=== PATIENT | female | born 1950 | race Caucasian/White ===

== ENCOUNTER 2018-02-27 15:05 | Outpatient (REF) | payer MEDICARE, OTHER, SELFPAY ==
[2018-02-27 21:33] LABS: ALT 40 U/L (12-78); AST 20 U/L (15-37); Alkaline Phosphatase 97 U/L (46-116); Anion Gap 12.6 mmol/L (3-11); BUN 29 mg/dL (7-18); CO2 26.4 mmol/L (21.0-32.0); CREATININE 1.14 mg/dL (0.55-1.02); Calcium 9.1 mg/dL (8.5-10.1); Chloride 103 mmol/L (98-107); Estimated GFR 47.84 (mL/min/1.73m2); Glucose 116 mg/dL (70-100); Sodium 142 mmol/L (136-145)
== END 2018-02-27 15:25 ==
LOC: NCHCN 15:05
PROVIDERS: PCP Internal Medicine; Visit Provider Internal Medicine
DX: I10 Essential (primary) hypertension (principal); M19.049 Primary osteoarthritis, unspecified hand
CPT/HCPCS: 80048; 84075; 84450; 84460

== ENCOUNTER 2018-03-09 00:48 | Outpatient (CLI) | payer MEDICARE, OTHER, SELFPAY ==
--- NOTE | 2018-03-09 14:00 | DI.RAD_ITS ---
SYMPTOMS/DIAGNOSIS: SCREENING FOR OSTEOPOROSIS IN POSTMENOPAUSAL WOMAN, Z78.0 DEXA SCAN: Routine examination was performed. Evaluation of the lumbar spine shows no compression deformities. Evaluation of the left hip shows a total T score of -1.5 and a Z score of -0.3. This is consistent with osteopenia and an increased fracture risk. Evaluation of the lumbar spine shows a total T score of -3.1 and a Z score of - 1.3. This is consistent with osteoporosis and a high fracture risk. IMPRESSION: Osteoporosis in the lumbar spine.
== END 2018-03-09 01:08 ==
PROVIDERS: PCP Internal Medicine; Visit Provider Internal Medicine
DX: M81.0 Age-related osteoporosis without current pathological fracture (principal)
CPT/HCPCS: 77080

== ENCOUNTER 2018-06-27 01:12 | Outpatient (CLI) | payer MEDICARE, OTHER, SELFPAY ==
--- NOTE | 2018-06-27 13:00 | DI.CT_ITS ---
SYMPTOMS/DIAGNOSIS: MULTIPLE NODULES OF LUNG, R91.8 CT SCAN OF THE CHEST: Noncontrast CT scan of the chest was performed. Comparison is 12/02/17. There is atherosclerosis of the thoracic aorta. Heart size is within normal limits. No significant pericardial effusion is seen. Coronary artery calcifications are present. There are calcified lymph nodes in the mediastinum and calcified nodules in the lungs consistent with prior granulomatous disease. The upper abdomen also shows calcification in the liver and spleen, consistent with prior granulomatous disease. No pleural effusion or pneumothorax is identified. There is again seen a 0.5 cm noncalcified pulmonary nodule in the left lung base medially. The nodule along the superior aspect of the right major fissure is unchanged. No new noncalcified pulmonary nodules are appreciated. Dependent atelectatic changes are seen in the lung bases. No focal consolidating infiltrates are present. There are degenerative changes seen in the spine. There is unchanged nodularity of the left adrenal gland. IMPRESSION: 1. Stable noncalcified pulmonary nodules. 2. Findings consistent with prior granulomatous disease in the chest and abdomen.
== END 2018-06-27 01:32 ==
PROVIDERS: PCP Internal Medicine; Visit Provider Internal Medicine
DX: R91.8 Other nonspecific abnormal finding of lung field (principal); J84.10 Pulmonary fibrosis, unspecified
CPT/HCPCS: 71250

== ENCOUNTER 2018-07-02 13:34 | Emergency (ER) | payer MEDICARE, OTHER, SELFPAY ==
[2018-07-02 13:47] VITALS: BP 180/100; PULSE 99; RESP 18; TEMP 36.6; O2SAT 96
--- NOTE | 2018-07-02 14:05 | ED.GENADUL_ITS ---
Discharge Plan Disposition Patient Disposition: HOME Condition: Improving Discharge Details Chief Complaint: DentalOral Clinical Impression: Odontalgia Primary Care Provider: Lorenzo Patel ED Provider: Aki Severino Home Meds and New Rx's Prescriptions: New penicillin V potassium 500 mg tablet 500 mg PO TID 10 Days Qty: 30 RF: 0 Continued hydrochlorothiazide 12.5 MG capsule 12.5 mg PO DAILY RF: 0 levothyroxine 50 MCG tablet 50 mcg PO DAILY RF: 0 estradiol [Estrace] 42.5 GM cream 42.5 gm VG twice weekly Qty: 1 RF: 3 losartan 50 MG tablet 50 mg PO DAILY RF: 0 trazodone 50 MG tablet 2 - 3 tab PO HS RF: 0 albuterol sulfate 8.5 GM HFA aerosol inhaler 2 puff Inhalation Q6H PRNRF: 0 duloxetine [Cymbalta] 30 MG capsule,delayed release(DR/EC) 30 mg PO DAILY RF: 0 Discharge Instructions Instructions: Toothache (ED) Additional Instructions: Warm, salt water gargles to reduce discomfort. May use Tylenol and/or ibuprofen as needed for pain. Take antibiotics as prescribed and follow-up with dentistry in the morning as planned. Return to the emergency department for any acute concerns Medical Decision Making 67-year-old female with poor dentition presents with right lower tooth pain over days time. She has numerous broken cusps of teeth and appears to have local apical infection at right lower premolar. She is hypertensive and in pain. Patient consented for dental block and right inferior alveolar anesthesia achieved with a 50-50 mix of Marcaine and lidocaine. Patient placed on a course of penicillin and she has pre-standing plans to follow-up with dentistry HPI General Mode of arrival: ambulatory . Date/Time Provider Initiated Documentation: 07/02/18 13:44 . Limitations to Documentation: no limitations . Information obtained by: patient . History of Present Illness 67 year old F presents to the emergency department with the chief complaint of Right lower jaw pain, broken teeth, described as moderate, Quality is described as aching, and is localized to the face and right. Patient reports no radiation. Patient started experiencing this day(s) and it has been constant. No relieving factors improve symptom(s), No exacerbating factors reported . Patient notes no other symptoms.. Related Data Home Medications Medication Instructions Recorded Confirmed albuterol sulfate 2 puff INHALATION Q6H PRN 03/12/13 10/03/17 duloxetine [Cymbalta] 30 mg PO DAILY 03/12/13 10/03/17 trazodone 2 - 3 tab PO HS 03/12/13 10/03/17 hydrochlorothiazide 12.5 mg PO DAILY tab-cap 06/04/14 10/03/17 levothyroxine 50 mcg PO DAILY tab-cap 02/19/16 10/03/17 estradiol [Estrace] 42.5 gm VG twice weekly #1 tube 08/29/17 losartan 50 mg PO DAILY tab-cap NS 09/21/17 10/03/17 penicillin V potassium 500 mg PO TID 10 Days #30 tab 07/02/18 Previous Rx's Medication Instructions Recorded estradiol [Estrace] 42.5 gm VG twice weekly #1 tube 08/29/17 penicillin V potassium 500 mg PO TID 10 Days #30 tab 07/02/18 Allergies Allergy/AdvReac Type Severity Reaction Status Date / Time No Known Drug Allergies Allergy Unverified 07/02/18 13:54 General Stated Complaint: DentalOral JAIRON: 4 Review of Systems Review of Systems 6 systems reviewed and otherwise neg PFSH Surgical History Colonoscopy - IV Sedation Colonoscopy - MAC (10/03/17) Family History Mother Heart disease Stroke Father Lung cancer Social History Smoking/Tobacco Use Status: Never Exam Narrative Exam Narrative: GEN: awake, alert, oriented 3. Pleasant, well groomed, interactive. HEAD: Normocephalic, atraumatic ENT: Mucous membranes moist, oropharynx with numerous broken cusps of teeth. Right lower premolar with pain and mild surrounding induration, no fluctuance. EYES: PERRL, EOMI NECK: Full ROM, no QUINCY, no menigismus CHEST/RESP: Nontender, clear to auscultation bilateral, no wheeze/rhonchi/rales CARDIOVASCULAR: RRR, no murmur, rub yvan. 2+ Rad pulse bilateral ABDOMEN: Soft, nontender, no mass. +Bowel sounds EXT: Full ROM, no edema, no rash Neuro: Grossly normal neurologic exam, conversant, interactive. Psych: Speech fluent, thoughts congruent, affect normal Course Vital Signs Temperature 36.6 C 07/02/18 13:47 Pulse 99 H 07/02/18 13:47 Respiratory Rate 18 07/02/18 13:47 Blood Pressure 180/100 H 07/02/18 13:47 Pulse Oximetry 96 07/02/18 13:47 Temperature 36.6 C 07/02/18 13:47 Temperature Source Temporal Artery Scan 07/02/18 13:47 Pulse 99 H 07/02/18 13:47 Respiratory Rate 18 07/02/18 13:47 Respiratory Effort Non-Labored 07/02/18 13:53 Blood Pressure 180/100 H 07/02/18 13:47 Blood Pressure Position Sitting 07/02/18 13:47 Pulse Oximetry 96 07/02/18 13:47 Oxygen Delivery Method Room Air 07/02/18 13:47 Oxygen Flow Rate 0 07/02/18 13:47 Pain Level 9 07/02/18 13:58 Procedures Nerve Block Nerve Block 1: Time out performed: Yes Local Anesthetic: Lidocaine 1% and Bupivicaine 0.25% Intraoral Nerve Block: inferior alveolar Patient Tolerated Procedure: well
[2018-07-02] MEDS: Penicillin V POTASSIUM 500 MG TAB PO (14:20)
== END 2018-07-02 14:13 | disposition home or self-care (01) ==
PROVIDERS: Emergency Provider Emergency Medicine; PCP Internal Medicine
DX: K08.89 Other specified disorders of teeth and supporting structures (principal)
CPT/HCPCS: 64402

== ENCOUNTER 2018-07-25 11:07 | Outpatient (CLI) | payer MEDICARE, OTHER, SELFPAY ==
--- NOTE | 2018-07-25 11:35 | DI.RAD_ITS ---
SYMPTOM/DIAGNOSIS: DEGENERATIVE JOINT DISEASE KNEES, RT HIP PAIN, M25.551, M17.9 PELVIS AND RIGHT HIP: Two views. The right hip is well maintained. The sacroiliac joints and symphysis pubis are unremarkable. The bones are intact and normally mineralized. Note is made of mild degenerative changes seen in the lower lumbar spine. The soft tissues are unremarkable. IMPRESSION: Normal right hip. Mild degenerative changes seen in the lower lumbar spine. If there is continued concern, an xray of the lumbar spine may be considered. RIGHT KNEE: Frontal and lateral views. No priors for comparison. There is mild narrowing in the medial femoral tibial joint space. There is kar-articular spurring involving all three joint compartments, particularly the patellofemoral joint. The bones are intact and normally mineralized. The soft tissues are unremarkable. IMPRESSION: Mild to moderate degenerative changes of the right knee.
== END 2018-07-25 11:27 ==
PROVIDERS: PCP Internal Medicine; Visit Provider Internal Medicine
DX: M25.551 Pain in right hip (principal); M17.11 Unilateral primary osteoarthritis, right knee; M25.561 Pain in right knee; M25.562 Pain in left knee
CPT/HCPCS: 73562; 73502

== ENCOUNTER 2018-10-18 09:25 | Outpatient (CLI) | payer MEDICARE, OTHER, SELFPAY ==
--- NOTE | 2018-10-18 09:24 | DI.RAD_ITS ---
SYMPTOM/DIAGNOSIS: RT KNEE PAIN RIGHT KNEE: Two views were obtained. There is moderate narrowing of the medial tibiofemoral cartilaginous joint space. There are marginal osteophytes at the medial joint margins. No other specific bony abnormality is seen. CONCLUSION: DJD of medial tibiofemoral joint.
== END 2018-10-18 09:45 ==
PROVIDERS: PCP Internal Medicine; Referring Provider Internal Medicine; Visit Provider Student in an Organized Health Care Education/Training Program
DX: M25.561 Pain in right knee (principal); M17.11 Unilateral primary osteoarthritis, right knee; M25.551 Pain in right hip; M70.61 Trochanteric bursitis, right hip
CPT/HCPCS: 20610; 99202; 99214; 73560; J1040

== ENCOUNTER → 2018-12-18 12:56 | Outpatient (BNVA) | payer MEDICARE, OTHER, SELFPAY | PROVIDERS: PCP Internal Medicine; Referring Provider Internal Medicine; Visit Provider Student in an Organized Health Care Education/Training Program | DX: M25.561 Pain in right knee (principal); M70.61 Trochanteric bursitis, right hip; Z98.890 Other specified postprocedural states; M17.11 Unilateral primary osteoarthritis, right knee | CPT/HCPCS: 99213 ==

== ENCOUNTER 2019-02-07 12:28 | Outpatient (REF) | payer MEDICARE, OTHER, SELFPAY ==
[2019-02-08 05:19] LABS: HCT 42.1 % (36.0-46.0); HGB 13.2 g/dL (12.0-15.5); Mean Corp. HGB Concentration 31.4 g/dL (32.0-36.0); Mean Corpuscular Volume 95.7 fL (80-95); Platelet Count 232 x1000/uL (130-400); RBC Distribution Width 12.8 % (11.7-14.6); White Blood Cell Count 6.39 k/cumm (4.4-10.8)
[2019-02-08 05:52] LABS: Anion Gap 11.8 mmol/L (3-11); BUN 23 mg/dL (7-18); CO2 24.2 mmol/L (21.0-32.0); CREATININE 1.08 mg/dL (0.55-1.02); Calcium 8.7 mg/dL (8.5-10.1); Chloride 107 mmol/L (98-107); Estimated GFR 50.76 (mL/min/1.73m2); FREE T4 1.13 ng/dL (0.76-1.46); Glucose 128 mg/dL (70-100); Potassium 3.8 mmol/L (3.5-5.1); Sodium 143 mmol/L (136-145); TSH 1.21 uIU/mL (0.36-3.74)
== END 2019-02-07 12:48 ==
LOC: NCHCN 12:28
PROVIDERS: PCP Internal Medicine; Visit Provider Internal Medicine
DX: E03.9 Hypothyroidism, unspecified (principal); I10 Essential (primary) hypertension; R53.83 Other fatigue
CPT/HCPCS: 80048; 85027; 84439; 84443

== ENCOUNTER 2019-05-18 21:13 | Outpatient (REF) | payer MEDICARE, OTHER, SELFPAY | END 2019-05-18 21:33 | LOC: NCHCN 21:13 | PROVIDERS: PCP Internal Medicine; Visit Provider Family Medicine | DX: R35.0 Frequency of micturition (principal) | CPT/HCPCS: 87086 ==

== ENCOUNTER 2020-01-24 00:44 | Outpatient (CLI) | payer MEDICARE, OTHER, SELFPAY ==
--- NOTE | 2020-01-24 12:25 | DI.MAMMO_ITS ---
EXAM: MAMMO SCREENING CLINICAL HISTORY: SCREENING, Z12.39 TECHNIQUE: Mammograms were interpreted according to the usual protocol including computer analysis w [employer] CAD system, tomosynthesis and C-view imaging. COMPARISON: 2010 through 2017 FINDINGS: The breasts are composed of scattered fibroglandular densities, Breast Density category B. No suspicious masses or suspicious microcalcifications are seen. No skin thickening or abnormal axillary lymph nodes are seen. There has been no significant change from prior exams. IMPRESSION: BI-RADS Category 1, Negative mammogram Yearly screening mammography is recommended. Breast Density Category B, scattered fibroglandular densities. A negative radiographic report should not delay biopsy if a dominant or clinically suspicious mass is present. Up to ten percent of cancers are not identified on mammography. A negative report may reinforce clinical impression. Adenosis and dense breasts may obscure an underlying neoplasm. False positive reports average 6 to 10%. Patient will receive a letter notifying them of these results.
== END 2020-01-24 01:04 ==
PROVIDERS: PCP Internal Medicine; Visit Provider Internal Medicine
DX: Z12.31 Encounter for screening mammogram for malignant neoplasm of breast (principal); R92.2 Inconclusive mammogram
CPT/HCPCS: 77063; 77067

== ENCOUNTER 2020-02-07 12:06 | Outpatient (REF) | payer MEDICARE, OTHER, SELFPAY ==
[2020-02-07 20:50] LABS: HCT 41.1 % (36.0-46.0); HGB 13.6 g/dL (11.2-15.7); MCH 30.9 pg (27.0-33.0); MCHC 33.1 % (32.0-36.0); MCV 93.4 fL (80-95); MPV 13.2 fL (8.0-11.0); Platelet Count 263 10^3/uL (130-400); RDW-SD 41.3 fL; WBC 5.22 10^3/uL (4.4-10.8)
[2020-02-07 21:10] LABS: ALT 27 U/L (14-59); AST 13 U/L (15-37); Alkaline Phosphatase 121 U/L (46-116); Anion Gap 9.3 mmol/L (3-11); BUN 19 mg/dL (7-18); Bilirubin, Total 0.3 mg/dL (0.2-1.0); CO2 25.7 mmol/L (21.0-32.0); CREATININE 0.97 mg/dL (0.55-1.02); Calcium 9.3 mg/dL (8.5-10.1); Chloride 104 mmol/L (98-107); Estimated GFR 57.28 (mL/min/1.73m2); FREE T4 1.05 ng/dL (0.76-1.46); Glucose 82 mg/dL (74-106); Potassium 4.2 mmol/L (3.5-5.1); Sodium 139 mmol/L (136-145); TSH 2.11 uIU/mL (0.36-3.74); Total Protein 7.1 g/dL (6.4-8.2)
[2020-02-07 21:51] LABS: Vitamin B12 398 pg/mL (193-986)
== END 2020-02-07 12:26 ==
LOC: NCHCN 12:06
PROVIDERS: PCP Internal Medicine; Visit Provider Internal Medicine
DX: R53.83 Other fatigue (principal); E03.9 Hypothyroidism, unspecified; I10 Essential (primary) hypertension; M79.7 Fibromyalgia
CPT/HCPCS: 80053; 85027; 82607; 84439; 84443

== ENCOUNTER 2020-08-07 21:14 | Outpatient (REF) | payer MEDICARE, OTHER, SELFPAY | END 2020-08-07 21:15 | disposition home or self-care (01) | LOC: NCHCN 21:14 | PROVIDERS: PCP Internal Medicine; Visit Provider Internal Medicine | DX: R35.0 Frequency of micturition (principal); R32 Unspecified urinary incontinence | CPT/HCPCS: 87086 ==

== ENCOUNTER 2020-09-25 19:15 | Outpatient (REF) | payer MEDICARE, OTHER, SELFPAY | END 2020-09-25 19:16 | disposition home or self-care (01) | LOC: NCHCN 19:15 | PROVIDERS: PCP Internal Medicine; Visit Provider Family Medicine | DX: R35.0 Frequency of micturition (principal) | CPT/HCPCS: 87086 ==

== ENCOUNTER 2021-02-23 15:47 | Outpatient (REF) | payer MEDICARE, OTHER, SELFPAY ==
[2021-02-23 20:57] LABS: HCT 40.2 % (36.0-46.0); HGB 12.9 g/dL (11.2-15.7); MCH 30.5 pg (27.0-33.0); MCHC 32.1 % (32.0-36.0); MPV 13.4 fL (8.0-11.0); Platelet Count 222 10^3/uL (130-400); RBC 4.23 10^6/uL (3.93-5.22); RDW 12.5 % (11.7-14.6); RDW-SD 43.2 fL; WBC 7.26 10^3/uL (4.4-10.8)
[2021-02-23 21:19] LABS: ALT 31 U/L (14-59); AST 14 U/L (15-37); Albumin 3.8 g/dL (3.4-5.0); Alkaline Phosphatase 112 U/L (46-116); Anion Gap 7.8 mmol/L (3-11); BUN 22 mg/dL (7-18); Bilirubin, Total 0.2 mg/dL (0.2-1.0); CO2 29.2 mmol/L (21.0-32.0); CREATININE 0.9 mg/dL (0.55-1.02); Calcium 8.8 mg/dL (8.5-10.1); Chloride 109 mmol/L (98-107); Glucose 87 mg/dL (74-106); Potassium 4.5 mmol/L (3.5-5.1); Sodium 146 mmol/L (136-145); Total Protein 6.8 g/dL (6.4-8.2)
== END 2021-02-23 15:48 | disposition home or self-care (01) ==
LOC: NCHCN 15:47
PROVIDERS: PCP Internal Medicine; Visit Provider Internal Medicine
DX: I10 Essential (primary) hypertension (principal); R53.83 Other fatigue
CPT/HCPCS: 80053; 85027

== ENCOUNTER 2021-03-20 10:49 | Outpatient (REF) | payer MEDICARE, SELFPAY ==
[2021-03-21 15:32] LABS: COVID-19 RT-PCR UVMMC Result Negative (Negative)
== END 2021-03-20 10:50 | disposition home or self-care (01) ==
LOC: NCHCN 10:49
PROVIDERS: PCP Internal Medicine; Visit Provider Internal Medicine
DX: Z20.822 Contact with and (suspected) exposure to COVID-19 (principal)
CPT/HCPCS: U0003; U0005

== ENCOUNTER → 2021-04-09 11:08 | Outpatient (BNVA) | payer MEDICARE, OTHER, SELFPAY | PROVIDERS: PCP Internal Medicine; Referring Provider Internal Medicine; Visit Provider Physical Therapy Assistant | DX: R19.4 Change in bowel habit (principal); I10 Essential (primary) hypertension; Z86.010 Personal history of colon polyps | CPT/HCPCS: 99213 ==

== ENCOUNTER 2021-04-27 01:28 | Outpatient (CLI) | payer MEDICARE, SELFPAY ==
--- NOTE | 2021-04-27 09:00 | DI.MAMMO_ITS ---
Exam(s) MAMMO SCREENING EXAM: MAMMO SCREENING CLINICAL HISTORY: SCREENING FOR BREAST CANCER Z12.39 TECHNIQUE: Mammograms were interpreted according to the usual protocol including computer analysis w [employer] CAD system, tomosynthesis and C-view imaging. COMPARISON: 2012 through 2019 FINDINGS: The breasts are composed of scattered fibroglandular densities, Breast Density category B. No suspicious masses or suspicious microcalcifications are seen. No skin thickening or abnormal axillary lymph nodes are seen. There has been no significant change from prior exams. IMPRESSION: BI-RADS Category 1, Negative mammogram Yearly screening mammography is recommended. Breast Density - Category B, scattered fibroglandular densities. A negative radiographic report should not delay biopsy if a dominant or clinically suspicious mass is present. Up to ten percent of cancers are not identified on mammography. A negative report may reinforce clinical impression. Adenosis and dense breasts may obscure an underlying neoplasm. False positive reports average 6 to 10%. Patient will receive a letter notifying them of these results.
== END 2021-04-27 01:48 ==
PROVIDERS: PCP Internal Medicine; Visit Provider Internal Medicine
DX: Z12.31 Encounter for screening mammogram for malignant neoplasm of breast (principal)
CPT/HCPCS: 77063; 77067

== ENCOUNTER 2021-06-01 11:43 | Outpatient (REF) | payer MEDICARE, SELFPAY ==
[2021-06-01 15:41] LABS: FREE T4 1.01 ng/dL (0.76-1.46); TSH 1.21 uIU/mL (0.36-3.74)
== END 2021-06-01 11:44 | disposition home or self-care (01) ==
LOC: NCHCN 11:43
PROVIDERS: PCP Internal Medicine; Visit Provider Internal Medicine
DX: E03.9 Hypothyroidism, unspecified (principal)
CPT/HCPCS: 84439; 84443

== ENCOUNTER 2022-04-08 02:18 | Outpatient (CLI) | payer MEDICARE, SELFPAY ==
--- NOTE | 2022-04-08 | DI.RAD_ITS ---
Exam(s) XR KNEE LT 3V AP,LAT,RUSSELL EXAM: XR KNEE LT 3V AP,LAT,RUSSELL CLINICAL HISTORY: LT KNEE PAIN, M25.562, PAIN, SWELLING TECHNIQUE: COMPARISON: CR XR knee RT 2V AP,lat from 10/18/2018 FINDINGS: Three views were obtained. There is moderate narrowing of the medial tibiofemoral cartilaginous join t space, presumably on a degenerative basis. Mild marginal osteophyte formation seen involving all 3 joints of the knee. No other bony abnormality seen. IMPRESSION: RADIATION DOSE DELIVERED: Total DLP
== END 2022-04-08 02:38 ==
LOC: DI 02:18
PROVIDERS: PCP Internal Medicine; Visit Provider Internal Medicine
DX: M17.12 Unilateral primary osteoarthritis, left knee (principal)
CPT/HCPCS: 73562

== ENCOUNTER 2022-04-22 13:41 | Outpatient (REF) | payer MEDICARE, OTHER, SELFPAY ==
[2022-04-22 15:03] LABS: Anion Gap 7.9 mmol/L (3-11); BUN 18 mg/dL (7-18); CO2 26.1 mmol/L (21.0-32.0); CREATININE 0.9 mg/dL (0.55-1.02); Calcium 8.7 mg/dL (8.5-10.1); Calculated LDL 169 mg/dL (<100); Chloride 106 mmol/L (98-107); Cholesterol 243 mg/dL (<200); Glucose 105 mg/dL (74-106); HDL Cholesterol 53 mg/dL (40-60); Potassium 4.1 mmol/L (3.5-5.1); Sodium 140 mmol/L (136-145); TSH 1.42 uIU/mL (0.36-3.74); Triglyceride 107 mg/dL (<150)
== END 2022-04-22 13:42 | disposition home or self-care (01) ==
LOC: NCHCN 13:41
PROVIDERS: PCP Internal Medicine; Visit Provider Internal Medicine
DX: I10 Essential (primary) hypertension (principal); E03.9 Hypothyroidism, unspecified; F43.23 Adjustment disorder with mixed anxiety and depressed mood
CPT/HCPCS: 80048; 80061; 84443

== ENCOUNTER → 2022-05-03 10:39 | Outpatient (BNVA) | payer MEDICARE, OTHER, SELFPAY | PROVIDERS: PCP Internal Medicine; Referring Provider Internal Medicine | DX: M17.12 Unilateral primary osteoarthritis, left knee (principal) | CPT/HCPCS: 20610; 99213; J1040 ==

== ENCOUNTER → 2022-08-20 08:36 | Outpatient (BNVA) | payer MEDICARE, OTHER, SELFPAY | PROVIDERS: PCP Internal Medicine; Referring Provider Internal Medicine; Visit Provider Student in an Organized Health Care Education/Training Program | DX: M17.12 Unilateral primary osteoarthritis, left knee (principal); M70.62 Trochanteric bursitis, left hip | CPT/HCPCS: 20610; J1040 ==

== ENCOUNTER 2022-10-29 17:27 | Emergency (ER) | payer MEDICARE, OTHER, SELFPAY ==
[2022-10-29 17:41] VITALS: BP 193/86; PULSE 79; RESP 17; TEMP 36.9; O2SAT 96
--- NOTE | 2022-10-29 19:45 | DI.RAD_ITS ---
Exam(s) XR FINGER LT MIDDLE EXAM: XR FINGER LT MIDDLE CLINICAL HISTORY: trauma. TECHNIQUE: 2D digital imaging was performed. COMPARISON: No exams were available for comparison FINDINGS: 3 views Dedicated views of the 3rd-middle finger reveal significant osteoarthritic degenerative changes in th e PIP joint. Subtle lucency in the dorsal osteophyte at this level may represent fracture. No radio paque foreign body. There are no erosions at the MCP joint levels. IMPRESSION: DATA REPOSITORY: RADIATION DOSE DELIVERED:
--- NOTE | 2022-10-29 19:45 | DI.RAD_ITS ---
Exam(s) XR WRIST LT COMPLETE EXAM: XR WRIST LT COMPLETE CLINICAL HISTORY: trauma. TECHNIQUE: 2D digital imaging was performed. COMPARISON: No exams were available for comparison FINDINGS: 3 views No evidence of fracture or carpal dislocation. No significant ulnar variance. Scaphoid and scapholu pelon distance unremarkable. Degenerative changes in the 1st carpometacarpal joint noted. IMPRESSION: No fractures evident. DATA REPOSITORY: RADIATION DOSE DELIVERED:
--- NOTE | 2022-10-29 19:45 | DI.RAD_ITS ---
Exam(s) XR HAND LT COMPLETE EXAM: XR HAND LT COMPLETE CLINICAL HISTORY: trauma. TECHNIQUE: 2D digital imaging was performed. COMPARISON: CR ARTHITIS SERIES-CEDRICK HAND WRIST from 09/18/2008 FINDINGS: 3 views No metacarpal fractures. There are significant degenerative changes in the PIP joints. On the later al view there is a finding in dorsal osteophyte the PIP joint of the 3rd-middle finger which may be a fracture. There is some overlying soft tissue swelling. Correlation with site of tenderness is rec ommended. IMPRESSION: DATA REPOSITORY: RADIATION DOSE DELIVERED:
--- NOTE | 2022-10-29 20:29 | DI.VRAD_ITS ---
PROCEDURE INFORMATION: Exam: XR Left Wrist Exam date and time: 10/29/2022 8:12 PM Age: 71 years old Clinical indication: Injury or trauma; Fall; Blunt trauma (contusions or hematomas); Wrist; Left TECHNIQUE: Imaging protocol: Radiologic exam of the left wrist. Views: 3 or more views. COMPARISON: CR XR HAND LT COMPLETE 10/29/2022 8:11 PM FINDINGS: Bones/joints: Bones appear osteopenic. Osseous alignment is normal. No acute fracture. Moderate degenerative changes noted in the trapezial metacarpal joint. Soft tissues: Normal. IMPRESSION: No acute abnormality Dictated and Authenticated by: Guilherme Andrade MD. Ordering:DALE Rodney MD
--- NOTE | 2022-10-29 20:32 | DI.VRAD_ITS ---
PROCEDURE INFORMATION: Exam: XR Left Hand Exam date and time: 10/29/2022 8:11 PM Age: 71 years old Clinical indication: Injury or trauma; Fall; Crushing; Hand; Left TECHNIQUE: Imaging protocol: Radiologic exam of the left hand. Views: 3 or more views. COMPARISON: No relevant prior studies available. FINDINGS: Bones/joints: Bones appear osteopenic. On the lateral view, there is lucency through a dorsal osteophyte at the 3rd PIP joint. No other findings suspicious for fracture. Significant changes of erosive osteoarthritis noted at the proximal interphalangeal joints of the 3rd, 4th and 5th fingers. More mild degenerative changes noted in the distal interphalangeal joints of the 2nd, 3rd and 4th fingers. Moderate degenerative changes noted at the trapezial metacarpal joint Soft tissues: Moderate soft tissue swelling of the 3rd finger IMPRESSION: Questionable fracture of a dorsal osteophyte at the 3rd PIP joint. Otherwise arthritic changes as noted. Dictated and Authenticated by: Guilherme Andrade MD. Ordering:DALE Rodney MD
--- NOTE | 2022-10-29 20:34 | DI.VRAD_ITS ---
PROCEDURE INFORMATION: Exam: XR Left Finger(s) Exam date and time: 10/29/2022 8:13 PM Age: 71 years old Clinical indication: Injury or trauma; Fall; Blunt trauma (contusions or hematomas); Left; Middle finger TECHNIQUE: Imaging protocol: Radiologic exam of the left fingers. Views: Minimum 2 views. COMPARISON: CR XR WRIST LT COMPLETE 10/29/2022 8:12 PM FINDINGS: Bones/joints: Lucency of dorsal osteophyte arising from the middle phalanx along the dorsal aspect of the 3rd PIP joint noted. This raises concern for fracture. No other findings suspicious for fracture. Slight malalignment of the 3rd PIP joint may be posttraumatic or due to severe arthritic changes. Significant changes of osteoarthritis noted throughout the visualized interphalangeal joints Soft tissues: There is diffuse soft tissue swelling of the 3rd finger. IMPRESSION: Questionable fracture of the dorsal osteophyte of the 3rd PIP joint. Slight malalignment of the 3rd PIP joint may be due to underlying erosive arthritic changes. Dictated and Authenticated by: Guilherme Andrade MD. Ordering:DALE Rodney MD
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
--- NOTE | 2022-10-30 10:41 | NUR.NOTE ---
Nursing Note: Accessed chart for [facility] billing purposes.
== END 2022-10-29 21:17 | disposition home or self-care (01) ==
PROVIDERS: Emergency Provider Nurse Practitioner Acute Care; PCP Internal Medicine
DX: S63.92XA Sprain of unspecified part of left wrist and hand, initial encounter (principal); S62.603A Fracture of unspecified phalanx of left middle finger, initial encounter for closed fracture; W19.XXXA Unspecified fall, initial encounter
CPT/HCPCS: 99284; 73110; 73130; 73140; 99283

== ENCOUNTER → 2022-11-04 10:05 | Outpatient (BNVA) | payer MEDICARE, OTHER, SELFPAY | PROVIDERS: PCP Internal Medicine; Referring Provider Internal Medicine; Visit Provider Physical Therapy Assistant | DX: Z12.11 Encounter for screening for malignant neoplasm of colon (principal); Z86.010 Personal history of colon polyps ==

== ENCOUNTER 2022-11-18 01:14 | Outpatient (CLI) | payer MEDICARE, OTHER, SELFPAY | END 2022-11-18 01:15 | disposition home or self-care (01) | LOC: LBO 01:15 | PROVIDERS: PCP Internal Medicine; Visit Provider Student in an Organized Health Care Education/Training Program | DX: S52.502A Unspecified fracture of the lower end of left radius, initial encounter for closed fracture (principal); S62.603A Fracture of unspecified phalanx of left middle finger, initial encounter for closed fracture; X58.XXXA Exposure to other specified factors, initial encounter | CPT/HCPCS: 99215 ==

== ENCOUNTER 2022-11-18 14:08 | Outpatient (CLI) | payer MEDICARE, OTHER, SELFPAY ==
--- NOTE | 2022-11-18 13:15 | DI.RAD_ITS ---
Exam(s) XR WRIST LT COMPLETE EXAM: XR WRIST LT COMPLETE CLINICAL HISTORY: left wrist sprain. TECHNIQUE: 2D digital imaging was performed. COMPARISON: CR,XR XR WRIST LT COMPLETE from 10/29/2022 FINDINGS: 3 views There is now a new impacted transverse fracture of the distal radius approximately 1 cm proximal to t he radiocarpal joint surface. There is no fracture of the ulnar styloid and no significant ulnar variance. No carpal dislocation. Scaphoid appears unremarkable. Degenerative changes are incidentally noted in the 1st carpometacarp al joint. IMPRESSION: Impacted fracture of the distal radius. No significant dorsal angulation. Ulnar styloid is intact. DATA REPOSITORY: RADIATION DOSE DELIVERED:
--- NOTE | 2022-11-18 13:15 | DI.RAD_ITS ---
Exam(s) XR HAND LT COMPLETE EXAM: XR HAND LT COMPLETE CLINICAL HISTORY: left middle finger fx. TECHNIQUE: 2D digital imaging was performed. COMPARISON: CR,XR XR FINGER LT MIDDLE from 10/29/2022 FINDINGS: 3 views There is now an impacted transverse fracture of the distal radius. Ulnar styloid appears intact. No dorsal angulation. Scaphoid and scapholunate distance normal. There are degenerative changes in th e 1st carpometacarpal joint again noted. No fractures of the metacarpals and phalanges but significa nt arthritic changes in the proximal interphalangeal joints of the 3rd, 4th, and 5th fingers are note d. There is relative sparing of the proximal interphalangeal joint of the 2nd-index finger. The int erphalangeal joint of the thumb is involved. Metacarpophalangeal joints appear unremarkable in all f ingers including the thumb. Mild degenerative changes in the DIP joints are noted with more prominen t DIP joint involvement evident in the index-2nd finger. IMPRESSION: Impacted distal radius transverse fracture. Articular findings in the hand but no acute osseous fractures in the hand evident. DATA REPOSITORY: RADIATION DOSE DELIVERED:
== END 2022-11-18 14:09 | disposition home or self-care (01) ==
LOC: DIORS 14:09
PROVIDERS: PCP Internal Medicine; Referring Provider Internal Medicine; Visit Provider Physician Assistant
DX: S63.502A Unspecified sprain of left wrist, initial encounter (principal); S62.603A Fracture of unspecified phalanx of left middle finger, initial encounter for closed fracture; X58.XXXA Exposure to other specified factors, initial encounter
CPT/HCPCS: 99215; 73110; 73130

== ENCOUNTER 2022-12-08 22:03 | Outpatient (REF) | payer MEDICARE, OTHER, SELFPAY | END 2022-12-08 22:04 | disposition home or self-care (01) | LOC: NCHCN 22:03 | PROVIDERS: PCP Internal Medicine; Visit Provider Family Medicine | DX: R35.0 Frequency of micturition (principal) | CPT/HCPCS: 87086 ==

== ENCOUNTER 2022-12-09 15:04 | Outpatient (CLI) | payer MEDICARE, OTHER, SELFPAY ==
--- NOTE | 2022-12-09 13:00 | DI.RAD_ITS ---
Exam(s) XR WRIST LT COMPLETE EXAM: XR WRIST LT COMPLETE CLINICAL HISTORY: F/U FRACTURE. TECHNIQUE: 2D digital imaging was performed. Three views. COMPARISON: CR XR WRIST LT COMPLETE from 11/18/2022 FINDINGS: There has been no change in the alignment of the distal radial fracture which shows mild displacement and impaction. There is a somewhat rounded density seen at the ventral aspect of the distal radius adjacent to the fracture site which could represent callus formation. Severe degenerative changes ag ain noted at the 1st carpal metacarpal joint. IMPRESSION: Healing distal radial fracture. DATA REPOSITORY: RADIATION DOSE DELIVERED:
== END 2022-12-09 15:05 | disposition home or self-care (01) ==
LOC: DIORS 15:04
PROVIDERS: PCP Internal Medicine; Referring Provider Internal Medicine; Visit Provider Physician Assistant
DX: S52.502D Unspecified fracture of the lower end of left radius, subsequent encounter for closed fracture with routine healing; X58.XXXD Exposure to other specified factors, subsequent encounter
CPT/HCPCS: 99213; 73110

== ENCOUNTER 2023-01-20 11:57 | Outpatient (CLI) | payer MEDICARE, OTHER, SELFPAY ==
--- NOTE | 2023-01-20 11:00 | DI.RAD_ITS ---
Exam(s) XR WRIST LT COMPLETE EXAM: XR WRIST LT COMPLETE CLINICAL HISTORY: F/U LEFT DISTAL RADIUS FX. TECHNIQUE: 2D digital imaging was performed. COMPARISON: CR XR WRIST LT COMPLETE from 12/09/2022 FINDINGS: 3 views Healing impacted fracture distal radius again noted. Appearance is similar to 12/09/2022. No furthe r displacement. Mild positive ulnar variance again noted. IMPRESSION: Healing distal radius fracture. Appearance is similar to 12/09/2022. DATA REPOSITORY: RADIATION DOSE DELIVERED:
== END 2023-01-20 11:58 | disposition home or self-care (01) ==
LOC: DIORS 11:57
PROVIDERS: PCP Internal Medicine; Referring Provider Internal Medicine; Visit Provider Student in an Organized Health Care Education/Training Program
DX: S52.502D Unspecified fracture of the lower end of left radius, subsequent encounter for closed fracture with routine healing (principal); X58.XXXD Exposure to other specified factors, subsequent encounter
CPT/HCPCS: 99213; 73110

== ENCOUNTER → 2023-01-25 12:52 | Outpatient (BNVA) | payer MEDICARE, OTHER, SELFPAY | PROVIDERS: PCP Internal Medicine; Referring Provider Internal Medicine; Visit Provider Surgery | DX: Z12.11 Encounter for screening for malignant neoplasm of colon (principal); Z86.010 Personal history of colon polyps ==

== ENCOUNTER 2023-02-08 08:29 | Day surgery (SDC) | payer MEDICARE, OTHER, SELFPAY ==
[2023-02-08 08:38] VITALS: BP 168/77; PULSE 76; RESP 18; TEMP 36.6; O2SAT 95
[2023-02-08] MEDS: Lactated Ringers 1,000 ML 80 ML IV (09:15)
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
[2023-02-08 10:35] VITALS: BMI 32.1
--- NOTE | 2023-02-08 10:43 | W.COLOREPORT ---
Date of service: 02/08/23 Time of Service: 11:17 Colonoscopy Report Procedure Description: Procedures performed: 1. Colonoscopy with snare polypectomy x2 2. Cold forceps polypectomy x1 Preoperative diagnosis: Surveillance colonoscopy Postoperative diagnosis: Colon polyps, mild sigmoid diverticulosis, mild grade 1 internal hemorrhoids Surgeon: Albert Vargas Anesthesia: Paul Indication for procedure: Patient is a 72-year-old woman with a history of polyps, no family history of colon cancer, she does admit to new constipation on and off over the last few months. Findings: In the cecum a small 2-3 mm sessile polyp was removed with cold forceps technique. In the ascending colon a small 3-5 mm flat sessile polyp was removed with hot snare technique. In the sigmoid colon a pedunculated 10-12 mm polyp was removed with hot snare technique. There are minimal diverticular changes in the sigmoid colon only. There are minimal grade 1 internal hemorrhoids. Surveillance/follow-up recommendations: 3 years Complications: None Blood loss: Minimal Specimens:?? YES Quality of Prep:?? Good Procedure in detail: Written consent was obtained from the patient who was in agreement with the risks, benefits and indications of the procedure.? We went to the endoscopy suite and laid the patient in left lateral decubitus position.? Anesthesia was administered which was tolerated well.? A timeout was performed and when we are all in agreement we began the procedure. Digital rectal exam and visual examination was performed and within normal limits.? A well?lubricated colonoscope was advanced without difficulty all the way to the cecum identified by the ileocecal valve, and triangular folds and appendiceal orifice.? It was then slowly withdrawn.?? Retroflexion was performed in the rectum.? The findings/interventions are noted above. The scope was then removed and the patient tolerated the procedure well and was then taken back to the PACU in hemodynamically stable condition.
--- NOTE | 2023-02-08 10:58 | BOWEL_PTH ---
PATIENT: Tatyana Glaser LOC: [facility] U#:[id number] AGE/SX: 72/F ROOM: RE02/08/[address]: Willard Vargas : 1950 BED: DIS: 02/08/2023 SPEC #: [id number] RECD: 02/08/23 12:55 STATUS: [facility] #: [id number] NAYE: 02/08/23 10:[address]: Willard Vargas DEPT: Surgical Specimen RECD BY: Taniya Hernandez ENTERED: 02/08/23 12:56 SP TYPE: Bowel OTHR DR: Lorenzo Patel Tissues: 1 - BIOPSY BOWEL 2 - BIOPSY BOWEL 3 - BIOPSY BOWEL Procedures: GROSS AND MICRO LEVEL 4 Comments: [id number]
[2023-02-08 11:15] VITALS: BP 138/69; PULSE 68; RESP 16; TEMP 36.2; O2SAT 93
--- NOTE | 2023-02-08 11:19 | W.PM.DSUDISC ---
Date of service: 02/08/23 Time of Service: 11:20 Discharge Plan Disposition Patient Disposition: Home Condition: Good Discharge Details Attending Provider: Willard Vargas Primary Care Provider: Lorenzo Patel Home Meds and New Rx's Prescriptions: No Action lorazepam 0.5 mg tablet 0.5 mg PO QHS PRN verapamil 180 mg capsule,ext rel. pellets 24 hr 180 mg PO DAILY salsalate 500 mg tablet 1,000 mg PO BID PRN venlafaxine 150 mg tablet extended release 24hr 150 mg PO HS aripiprazole 5 mg tablet 5 mg PO QHS bisacodyl [Dulcolax (bisacodyl)] 5 mg tablet,delayed release (DR/EC) 5 mg PO ONCE Qty: 4 0RF Rx Instructions: Take per colonoscopy instructions provided by ordering providers office polyethylene glycol 3350 17 gram/dose powder 17 g PO ONCE Qty: 238 0RF Rx Instructions: Take per colonoscopy instructions provided by ordering providers office levothyroxine 50 MCG tablet 50 mcg PO DAILY metoprolol succinate 50 mg tablet extended release 24 hr 50 mg PO HS pantoprazole 40 mg tablet,delayed release (DR/EC) 40 mg PO DAILY cholecalciferol (vitamin D3) 10 mcg (400 unit) capsule 20 mcg PO DAILY diltiazem HCl 240 mg capsule,extended release 24hr 240 mg PO HS budesonide-formoterol [Symbicort] 160-4.5 mcg/actuation HFA aerosol inhaler 2 puff inhalation BID ibuprofen 800 mg tablet 800 mg PO TID celecoxib [Celebrex] 200 mg capsule 200 mg PO BID Qty: 60 0RF Rx Instructions: take 1 tablet by mouth twice daily Discharge Instructions Additional Instructions: FINDINGS: Some more polyps were found today and removed. You do not need to worry about them since they have been removed. They do get checked by pathology. Because of these findings you should do another colonoscopy in 3 years. Diverticular changes were found today in your colon. These are extremely common, benign and usually do not cause any symptoms. There is nothing you need to do about it. Stand Alone Forms: Colonoscopy Post Instructions Activity:: Activity as Tolerated Diet:: As Tolerated
--- NOTE | 2023-02-08 11:25 | W.ANESPOSTOP ---
Postoperative Evaluation Date, Time and Location Date Performed: 02/08/23 Time Performed: 11:26 Patient Location: Day Surgery Unit Vital Signs Most Recent Imported Vital Signs: Most Recent Vital Signs Temp Pulse Resp BP Pulse Ox 36.2 C L 68 16 138/69 93 02/08/23 11:15 02/08/23 11:15 02/08/23 11:15 02/08/23 11:15 02/08/23 11:15 Pain Score Most Recent Pain Score: Most Recent Pain Score Pain Level 0 02/08/23 11:15 Assessment Mental Status: Awake (Alert & Oriented to Patient Baseline) Airway and Respiratory Function: Patent airway with normal (patient baseline) respiratory exam Cardiovascular Function: Hemodynamically Stable Hydration Status: Adequately Hydrated Nausea & Vomiting: No Nausea or Vomiting Pain: Pt. Denies Any Pain Peripheral Nerve Block: Patient did not receive a nerve block
[2023-02-08 11:41] VITALS: BP 149/68; PULSE 66; RESP 16; TEMP 36.2; O2SAT 99
== END 2023-02-08 12:00 | disposition home or self-care (01) ==
PROVIDERS: PCP Internal Medicine; Visit Provider Student in an Organized Health Care Education/Training Program
PROC: 0DJD8ZZ Inspection of Lower Intestinal Tract, Via Natural or Artificial Opening Endoscopic (ICD-10-PCS; CPT 45378; principal; 2023-02-08 10:15)
DX: Z12.11 Encounter for screening for malignant neoplasm of colon (principal); D37.4 Neoplasm of uncertain behavior of colon; K64.0 First degree hemorrhoids; K57.30 Diverticulosis of large intestine without perforation or abscess without bleeding; Z86.010 Personal history of colon polyps; K62.89 Other specified diseases of anus and rectum; K63.89 Other specified diseases of intestine
CPT/HCPCS: 45385; 45380; 88305

== ENCOUNTER → 2023-04-07 01:42 | Outpatient (CLI) | payer MEDICARE, OTHER, SELFPAY ==
--- NOTE | 2023-04-07 09:27 | DI.MAMMO_ITS ---
Exam(s) MAMMO SCREENING EXAM: MAMMO SCREENING CLINICAL HISTORY: SCREENING, Z12.31 TECHNIQUE: Bilateral full field digital CC and MLO mammographic images were obtained with 3D tomosyn thesis and utilizing computer aided detection (CAD). COMPARISON: Available for comparison. FINDINGS: Masses/Architectural Distortion: None seen. Microcalcifications: No suspicious pleomorphic-type are seen. Skin Thickening/Nipple Retraction: None. IMPRESSION: 1. No significant interval change with no specific features of malignancy noted. 2. Unless there is more urgent need, screening mammography is recommended, as per [employer] guidelines. BI-RADS Category 1 - Negative Breast Density - Category B - Scattered areas of fibroglandular density Breast density category C or D implies that the patient has dense breast tissue. Dense breast tissue is very common and is not abnormal but dense breast tissue can make it harder to find cancer on a ma mmogram. Also, dense breast tissue may increase their breast cancer risk. This information about the result of the mammogram report was provided to the patient to raise their awareness. Use this report when you speak with the patient about their risks for breast cancer, which includes their family hist ory. At that time, you may recommend for more screening tests (Ultrasound or MRI) as they might be us eful based on their risk. A negative radiographic report should not delay biopsy if a dominant or clinically suspicious mass is present. Up to ten percent of cancers are not identified on mammography. A negative report may reinforce clinical impression. Adenosis and dense breasts may obscure an underlying neoplasm. False positive reports average 6 to 10%. Patient will receive a letter notifying them of these results.
== END ==
PROVIDERS: PCP Internal Medicine; Visit Provider Internal Medicine
DX: Z12.31 Encounter for screening mammogram for malignant neoplasm of breast (principal)
CPT/HCPCS: 77063; 77067

== ENCOUNTER 2023-05-19 22:18 | Outpatient (REF) | payer MEDICARE, OTHER, SELFPAY ==
[2023-05-19 17:18] LABS: Anion Gap 8.3 mmol/L (3-11); BUN 17 mg/dL (7-18); CO2 25.7 mmol/L (21.0-32.0); Calcium 8.7 mg/dL (8.5-10.1); Chloride 106 mmol/L (98-107); Estimated GFR 60.61 (mL/min/1.73m2); FREE T4 1.22 ng/dL (0.76-1.46); Glucose 102 mg/dL (74-106); Sodium 140 mmol/L (136-145); TSH 1.21 uIU/mL (0.36-3.74)
== END 2023-05-19 22:19 | disposition home or self-care (01) ==
LOC: NCHCN 22:18
PROVIDERS: PCP Internal Medicine; Visit Provider Internal Medicine
DX: E03.9 Hypothyroidism, unspecified (principal); I10 Essential (primary) hypertension
CPT/HCPCS: 80048; 84439; 84443

== ENCOUNTER 2024-03-23 15:22 | Outpatient (REF) | payer MEDICARE, SELFPAY ==
[2024-03-23 17:22] LABS: Anion Gap 10.6 mmol/L (3-11); BUN 21 mg/dL (7-18); CO2 25.4 mmol/L (21.0-32.0); CREATININE 0.9 mg/dL (0.55-1.02); Calcium 9.6 mg/dL (8.5-10.1); Chloride 106 mmol/L (98-107); Estimated GFR 68.35 (mL/min/1.73m2); Ferritin 75 ng/mL (8-252); Glucose 78 mg/dL (74-106); Potassium 4.4 mmol/L (3.5-5.1); Sodium 142 mmol/L (136-145); TSH (W/Ref FT4) 1.06 uIU/mL (0.36-3.74)
[2024-03-23 17:40] LABS: Iron 111 ug/dL (50-170); Total Iron Binding Capacity 397 ug/dL (250-450); Transferrin Sat 28 % (15-50)
== END 2024-03-23 15:23 | disposition home or self-care (01) ==
LOC: NCHCN 15:22
PROVIDERS: PCP Family Medicine; Visit Provider Family Medicine
DX: I10 Essential (primary) hypertension (principal); E03.9 Hypothyroidism, unspecified; R53.83 Other fatigue
CPT/HCPCS: 80048; 85027; 82728; 83540; 83550; 84443

== ENCOUNTER 2024-04-25 01:39 | Outpatient (CLI) | payer MEDICARE, SELFPAY ==
--- NOTE | 2024-04-25 09:21 | DI.CT_ITS ---
Exam(s) CT CHEST WO EXAM: CT CHEST WO CLINICAL HISTORY: Multiple nodules of lung,R91.8-other nonspecific abnl finding of lung field. TECHNIQUE: Multi planar reconstructions were performed. CONTRAST MATERIAL: None FINDINGS: CHEST: LUNGS: There are again noted a few bilateral tiny benign calcified granulomas both lung hung. Larg est is in the right upper lobe and measures approximately 3 mm. In addition, there is a noncalcified nodule in the posterior basal segment of the left lower lobe sub pleural location which measures 7 x5 mm, not previously evident. No new confluent infiltrates and no pleural effusions. MEDIASTINUM: There few small calcified lymph nodes in the hilar regions and subcarinal region, consis tent with granulomatous disease and commensurate with the bilateral benign lung field granulomas. Th ere is no pathologic adenopathy evident in the hilar regions and mediastinum. CARDIAC: Mild cardiomegaly. No pericardial effusion.Caliber of the thoracic aorta is within normal l imits. VISUALIZED UPPER ABDOMEN:No new significant adrenal masses. Few small calcified granulomas are noted in the liver and spleen.. OSSEOUS: No significant osseous lesions.. IMPRESSION: 1. Compared to the prior CT scan of 2019 there is a 7 x 5 mm subpleural nodule in the posterior basal segment of the left lower lobe which was not evident on the prior study. 2. Solid nodules smaller than 6 mm do not require routine follow-up in all patients with high clinical r isk; however, some nodules smaller than 6 mm with suspicious morphology, upper lobe location, or both may warrant follow-up at 12 months (grade 2A; weak recommendation, high-quality evidence). (Law et al., 2017) For solitary solid noncalcified nodules measuring 6???8 mm in patients at high risk, an initial follo w-up examination is recommended at 6???12 months and again at 18???24 months (grade 1B: strong recomm endation, moderate quality evidence). (Law et al., 2017) For solitary solid noncalcified nodules larger than 8 mm in diameter, consider 3-month follow-up, wor k-up with combined positron emission tomography (PET) and CT (PET/CT), tissue sampling, or a combinat ion thereof; any one of these options may be appropriate depending on size, morphology, comorbidity, and other factors. (grade 1A; strong recommendation, high-quality evidence). (Law et al., 2017) RADIATION DOSE DELIVERED: 257.33mGy.cm Total DLP DATA REPOSITORY: All CT scans at this facility are submitted to the National Radiology Data Registry (NRDR) Dose Index Registry (DIR) with the [employer] (A[employer]). RADIATION OPTIMIZATION: All CT scans at this facility use at least one of these dose optimization te chniques: automated exposure control; mA and/or kV adjustment per patient size (includes targeted exa ms where dose is matched to clinical indication); or iterative reconstruction.
== END 2024-04-25 01:59 ==
LOC: DI 01:39
PROVIDERS: PCP Family Medicine; Visit Provider Family Medicine
DX: R91.8 Other nonspecific abnormal finding of lung field (principal)
CPT/HCPCS: 71250

== ENCOUNTER 2024-04-27 09:35 | Outpatient (REF) | payer MEDICARE, SELFPAY ==
[2024-04-27 14:42] LABS: Uric Acid 5.2 mg/dL (2.6-6.0)
== END 2024-04-27 09:36 | disposition home or self-care (01) ==
LOC: NCHCN 09:35
PROVIDERS: PCP Family Medicine; Visit Provider Family Medicine
DX: M25.571 Pain in right ankle and joints of right foot (principal)
CPT/HCPCS: 84550

== ENCOUNTER 2024-05-11 00:23 | Outpatient (CLI) | payer MEDICARE, SELFPAY ==
--- NOTE | 2024-05-11 09:15 | DI.RAD_ITS ---
Exam(s) XR ANKLE RT COMPLETE EXAM: XR ANKLE RT COMPLETE CLINICAL HISTORY: PAIN RT ANKLE M25.571 CONCERNING FOR GROUT. TECHNIQUE: 2D digital imaging was performed. Three views. COMPARISON: None FINDINGS: BONES: No acute fracture is present. Old fracture distal fibular shaft. No bony destructive lesion is seen. Small heel spurs. JOINTS: The ankle mortise is normally aligned. Mild narrowing medial tibiotalar joint space. SOFT TISSUE: Normal. IMPRESSION: Mild degenerative changes. DATA REPOSITORY: RADIATION DOSE DELIVERED:
--- NOTE | 2024-05-11 09:15 | DI.RAD_ITS ---
Exam(s) XR HAND RT COMPLETE EXAM: XR HAND RT COMPLETE CLINICAL HISTORY: PAIN RT HAND M79.641 SEVERE ARTHRITIS PIP JOINTS, EVAL FOR EVIDENCE OF RA. TECHNIQUE: 2D digital imaging was performed of the right hand. Three images were obtained. AP, late ral and oblique views were obtained. COMPARISON: CR ARTHITIS SERIES-CEDRICK HAND WRIST from 09/18/2008 FINDINGS: BONES: No acute fracture is present. No bony destructive lesion is seen. JOINTS: No dislocation present. There is joint space narrowing seen in the interphalangeal joints of the fingers with central erosions and prominent osteophytes. The findings are suggestive of erosive osteoarthritis. There is also joint space narrowing and bony hypertrophy of the 1st CMC joint. The metacarpophalangeal joints are well maintained. SOFT TISSUE: There is mild soft tissue swelling seen in the 2nd, 3rd and 4th fingers. No suspicious soft tissue calcifications or soft tissue gas is seen. IMPRESSION: Findings suggestive of erosive osteoarthritis. DATA REPOSITORY: RADIATION DOSE DELIVERED:
--- NOTE | 2024-05-11 09:16 | DI.RAD_ITS ---
Exam(s) XR HAND LT COMPLETE EXAM: XR HAND LT COMPLETE CLINICAL HISTORY: PAIN LT HAND M79.642 SEVERE ARTHRITIS PIP JOINTS, EVAL FOR EVIDENCE OF RA. TECHNIQUE: 2D digital imaging was performed of the left hand. Three views were obtained. AP, later al and oblique views were obtained. COMPARISON: CR XR HAND LT COMPLETE from 11/18/2022 CR XR WRIST LT COMPLETE from 01/20/2023 FINDINGS: BONES: No acute fracture is present. There is an old healed distal radial fracture deformity. No sammy ny destructive lesion is seen. JOINTS: No dislocation present. Joint space narrowing and osteophytes are seen in the left hand, part icularly at the 1st CMC joint and the interphalangeal joints of the fingers. Erosions centrally are also seen most evident at the PIP joint of the 5th finger. The metacarpophalangeal joints are well m aintained. SOFT TISSUE: No soft tissue calcifications or gas are seen. 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 DATA REPOSITORY: RADIATION DOSE DELIVERED:
== END 2024-05-11 00:43 ==
PROVIDERS: PCP Family Medicine; Visit Provider Family Medicine
DX: M19.042 Primary osteoarthritis, left hand (principal); M19.041 Primary osteoarthritis, right hand; M25.571 Pain in right ankle and joints of right foot
CPT/HCPCS: 73130; 73610

== ENCOUNTER 2024-08-06 21:21 | Outpatient (REF) | payer MEDICARE, SELFPAY ==
[2024-08-06 21:33] LABS: Anion Gap 11.8 mmol/L (3-11); BUN 19 mg/dL (7-18); CO2 24.2 mmol/L (21.0-32.0); CREATININE 0.8 mg/dL (0.55-1.02); Calcium 9.2 mg/dL (8.5-10.1); Calculated LDL 184 mg/dL (<100); Chloride 107 mmol/L (98-107); Cholesterol 271 mg/dL (<200); Estimated GFR 78.72 (mL/min/1.73m2); Glucose 72 mg/dL (74-106); HDL Cholesterol 66 mg/dL (>or=50); Potassium 4.7 mmol/L (3.5-5.1); Sodium 143 mmol/L (136-145); Triglyceride 107 mg/dL (<150)
[2024-08-07 19:11] LABS: Hepatitis C Ab w Rflx HCV PCR Negative (Negative)
== END 2024-08-06 21:22 | disposition home or self-care (01) ==
LOC: NCHCN 21:21
PROVIDERS: PCP Family Medicine; Visit Provider Family Medicine
DX: E78.5 Hyperlipidemia, unspecified (principal); I10 Essential (primary) hypertension; Z11.59 Encounter for screening for other viral diseases
CPT/HCPCS: 80048; 80061; 86803

== ENCOUNTER 2024-08-27 02:04 | Outpatient (CLI) | payer MEDICARE, SELFPAY ==
--- NOTE | 2024-08-27 | DI.CT_ITS ---
Exam(s) CT CHEST WO EXAM: CT CHEST WO CLINICAL HISTORY: SOLITARY PULM NODULE R91.1 FU FROM 04/2024 TECHNIQUE: Imaging Protocol: Axial computed tomography images with coronal and sagittal reformatted images were created and reviewed. Computer aided detection (CAD) was utilized. CONTRAST MATERIAL: Intravenous: Omnipaque 350 Contrast volume:structured data ml. CT CT CHEST WO from 04/25/2024 FINDINGS: Pulmonary parenchyma: Stable 7 x 5 millimeter nodule at the medial left lower lobe. No consolidation . Scattered calcified granulomas.Stable bilateral medial basilar subpleural scarring. Tracheobronchial tree: No bronchiectasis or mucous plugging. Mediastinum and Lala: Small calcified lymph nodes again noted. No dominant adenopathy or fluid colle ction. Pleura: No effusion. No pneumothorax. Heart: The heart is mildly dilated. Mild coronary artery calcifications are seen. Aorta: Thoracic aorta non-dilated. Mild atherosclerotic changes. Pulmonary arteries: No gross evidence of emboli. Upper abdomen: No acute findings. Some fatty replacement of the pancreas. Bones: Degenerative changes in the spine. Soft tissues: Unremarkable. IMPRESSION: Some stable 7 x 5 millimeter nodule at the medial left lower lobe. Scattered calcified granulomas ag ain noted. Follow-up in 1 year is recommended. RADIATION DOSE DELIVERED: Total DLP DATA REPOSITORY: All CT scans at this facility are submitted to the National Radiology Data Registry (NRDR) Dose Index Registry (DIR) with the [employer] (ACR). RADIATION OPTIMIZATION: All CT scans at this facility use at least one of these dose optimization te chniques: automated exposure control; mA and/or kV adjustment per patient size (includes targeted exa ms where dose is matched to clinical indication); or iterative reconstruction.
== END 2024-08-27 02:24 ==
LOC: DI 02:04
PROVIDERS: PCP Family Medicine; Visit Provider Family Medicine
DX: R91.1 Solitary pulmonary nodule (principal)
CPT/HCPCS: 71250

== ENCOUNTER 2024-11-22 00:42 | Outpatient (CLI) | payer MEDICARE, SELFPAY ==
--- NOTE | 2024-11-22 13:45 | DI.CT_ITS ---
Exam(s) CT CHEST WO EXAM: CT CHEST WO CLINICAL HISTORY: Solitary pulmonary nodule, R91.1, f/u. TECHNIQUE: Imaging protocol: Axial computed tomography images were obtained and coronal and sagittal reformatted images were created and reviewed. Lung Computer Aided Detection (CAD) was utilized. COMPARISON: CT CT CHEST WO from 08/27/2024 FINDINGS: Tracheobronchial tree: Patent where visualized. No bronchiectasis is present. Pulmonary parenchyma: There is dependent atelectasis in the lung bases. There is a stable 7 mm nodule in the medial aspect of the left lower lobe. There are calcified granuloma in the lungs. No architectural distortion. Mediastinum and Lala: No dominant adenopathy or fluid collection. The esophagus is unremarkable. Thyroid gland: Unremarkable. Pleura: No effusion or pneumothorax. Heart: The heart is not dilated. There are coronary artery calcifications present. No pericardial effusion. Aorta: Thoracic aorta non-dilated. Atherosclerotic calcifications are present. Upper abdomen: Calcified granuloma are seen in the liver and spleen. There is fatty atrophy of the pancreas. Lymph nodes: Within normal limits. Soft tissues: Unremarkable. Bones:Within normal limits for the patient's age. IMPRESSION: 1. Stable left lower lobe pulmonary nodule. 2. No acute pulmonary process. RADIATION DOSE DELIVERED: 226.04mGy.cm Total DLP 226.04mGy.cm Total DLP DATA REPOSITORY: All CT scans at this facility are submitted to the National Radiology Data Registry (NRDR) Dose Index Registry (DIR) with the [employer] (ACR). RADIATION OPTIMIZATION: All CT scans at this facility use at least one of these dose optimization techniques: automated exposure control; mA and/or kV adjustment per patient size (includes targeted exams where dose is matched to clinical indication); or iterative reconstruction.
== END 2024-11-22 01:02 ==
LOC: DI 00:42
PROVIDERS: PCP Family Medicine; Visit Provider Family Medicine
DX: R91.1 Solitary pulmonary nodule (principal)
CPT/HCPCS: 71250

== ENCOUNTER 2025-03-28 13:47 | Outpatient (REF) | payer MEDICARE, SELFPAY ==
[2025-03-28 16:37] LABS: Calculated LDL 76 mg/dL (<100); Cholesterol 154 mg/dL (<200); HDL Cholesterol 59 mg/dL (>or=50); TSH (W/Ref FT4) 1.35 uIU/mL (0.36-3.74); Triglyceride 96 mg/dL (<150)
== END 2025-03-28 13:48 | disposition home or self-care (01) ==
LOC: NCHCN 13:47
PROVIDERS: PCP Family Medicine; Visit Provider Family Medicine
DX: E78.00 Pure hypercholesterolemia, unspecified (principal); E03.9 Hypothyroidism, unspecified
CPT/HCPCS: 80061; 84443